=== PATIENT | male | born 1965 | race Caucasian/White ===

== ENCOUNTER 2017-10-04 06:53 | Day surgery (SDC) | payer OTHER ==
[~2017-10-04] VITALS: Ht 177.8 cm; Wt 96.2 kg
[~2017-10-04 06:53] MED LIST: CALCAVITD PO; DOCU100 PO; ENOX40I SC; HYDR1TAB94 PO; IBUP400 PO; Multivitamin1 EAC1 PO; NEXIUM 24HR20 M1 PO; TYLENOL PM PO; ZYRTEC10 M2 PO
== END 2017-10-04 22:51 | disposition home or self-care (01) ==
LOC: ORSCMMR 06:53
PROVIDERS: Internal Medicine Gastroenterology
PROC: 0DB68ZX Excision of Stomach, Via Natural or Artificial Opening Endoscopic, Diagnostic (ICD-10-PCS; principal; 2017-10-04 08:00)
PROC: 0DB58ZX Excision of Esophagus, Via Natural or Artificial Opening Endoscopic, Diagnostic (ICD-10-PCS; principal; 2017-10-04 08:00)
PROC: 0DJD8ZZ Inspection of Lower Intestinal Tract, Via Natural or Artificial Opening Endoscopic (ICD-10-PCS; principal; 2017-10-04 08:00)
DX: K21.9 Gastro-esophageal reflux disease without esophagitis (principal); K22.70 Barrett's esophagus without dysplasia; K62.5 Hemorrhage of anus and rectum; K64.8 Other hemorrhoids; Z87.891 Personal history of nicotine dependence
CPT/HCPCS: 88305; 88342; J7120

== ENCOUNTER 2020-01-18 06:06 | Day surgery (SDC) | payer BC ==
[~2020-01-18] VITALS: Ht 175.3 cm; Wt 97.1 kg
[~2020-01-18 06:06] MED LIST changes: +ADVIL PO; +ATORVASTATIN CA10 M1 PO; +ENDOCET 7.5-321 EACH PO; +NASACORT10.8 ML; +Nexium40 MG PO; +ONDA4 PO; +ONDA4ODT SL; +Roxicodone5 MG PO; +Vitamin A and1 EACH PO; +[UNRECOGNIZED DRUG - OTHER] PO
--- NOTE | 2020-01-18 06:52 | NUR ---
History, Chart, Medications and Allergies reviewed before start of procedure. Lungs clear T/O to Auscultation. Patient confirms NPO status and agrees with scheduled surgery. Pre-Op teaching done. Pt verbalizes understanding. Patient States Post-Procedure ride home has been arranged.
--- NOTE | 2020-01-18 07:31 | NUR ---
PT UPPER AND LOWER DENTURES REMOVED, ALONG WITH GLASSES AND PLACED IN PACU PTS [place] RING PLACED IN PLASTIC BACK AND PLACED IN TIP OF R TENNIS SHOE. PT AWARE.
--- NOTE | 2020-01-18 10:01 | NUR ---
01/18/20 1001 Shorty Chris CHOLANGIOGRAM X2, 2 RETRIEVAL BAGS USED 1 FOR STONES, 1 LAP UNDERWRITING DIRECTOR DROPPED OFF FIELD
--- NOTE | 2020-01-18 13:01 | NUR ---
Patient up to Ambulate independently. Gait steady. Discharge instructions reviewed with patient. Patient verbalizes understanding. Copy given to patient to take home. Patient States Post-Procedure ride home has been arranged. Discharged via wheelchair to private car for ride home.
== END 2020-01-18 13:19 | disposition home or self-care (01) ==
LOC: ORSCMMR 06:06 → ORD 07:30 → ORSCMMR 13:19
PROVIDERS: Surgery
PROC: 0FT44ZZ Resection of Gallbladder, Percutaneous Endoscopic Approach (ICD-10-PCS; principal; 2020-01-18 07:30)
PROC: BF031ZZ Plain Radiography of Gallbladder and Bile Ducts using Low Osmolar Contrast (ICD-10-PCS; principal; 2020-01-18 07:30)
DX: K80.12 Calculus of gallbladder with acute and chronic cholecystitis without obstruction (principal)
CPT/HCPCS: 74300; 88304; A9270-GY; C1729; J0461; J0694; J1100; J1885; J2250; J2405; J2704; J2710; J3010; J7120